=== PATIENT | female | born 1965 | race Hispanic/Latino ===

== ENCOUNTER 2024-04-23 01:38 | Inpatient (IN) | payer OTHER ==
[~2024-04-23] VITALS: Ht 157.5 cm; Wt 66.2 kg
[2024-04-23] MEDS: SODIUM CHLORIDE 0.9% 1000ML 1,000 ML IV STA (02:09)
[2024-04-23] MEDS: Morphine 4mg INJECTION 4 MG/ML INJ IV STA (02:09)
[2024-04-23] MEDS: ONDANSETRON HCL INJ 2MG/ML 2ML 2 MG/ML VIAL IV STA (02:09)
[2024-04-23 02:11] LABS: BASOPHILS % 0.2 % (0.0-1.0); EOSINOPHILS % 0.3 % (0.0-6.0); HEMATOCRIT 40.4 % (34.2-44.1); HEMOGLOBIN 13.1 g/dL (12.0-16.0); LYMPHOCYTES # (AUTO) 1.5 (1.0-3.2); LYMPHOCYTES % 12.5 % (18.0-39.1); MEAN CORPUSCULAR HEMOGLOBIN 30.5 pg (28-32); MEAN CORPUSCULAR HGB CONC 32.4 g/dL (31-35); MONOCYTES # (AUTO) 0.8 (0.2-0.8); MONOCYTES % 6.8 % (4.4-11.3); NEUTROPHILS # (AUTO) 9.2 (2.1-6.9); NEUTROPHILS % 79.3 % (38.7-80.0); PLATELET COUNT 276 x10e3/uL (140-360); WHITE BLOOD COUNT 11.61 x10e3/uL (4.8-10.8)
[2024-04-23 02:35] LABS: COLOR,URINE YELLOW (YELLOW)
[2024-04-23 02:36] LABS: BILIRUBIN,URINE MODERATE (NEGATIVE); CLARITY,URINE SL CLOUDY (CLEAR); GLUCOSE, URINE NEGATIVE (NEGATIVE); KETONES,URINE 2+ (NEGATIVE); LEUKOCYTE ESTERASE ,URINE TRACE (NEGATIVE); NITRITE,URINE NEGATIVE (NEGATIVE); PH,URINE 6 (5 - 7); PROTEIN,URINE DIPSTICK 1+ (NEGATIVE)
[2024-04-23 02:37] LABS: ALBUMIN 3.4 g/dL (3.5-5.0); ALBUMIN/GLOBULIN RATIO 0.8 (0.8-2.0); ANION GAP 16.8 mmol/L (8-16); BILIRUBIN,TOTAL 1.6 mg/dL (0.2-1.2); CALCIUM 9.4 mg/dL (8.4-10.2); CREATININE, SERUM 0.85 mg/dL (0.57-1.11); POTASSIUM 3.8 mmol/L (3.5-5.1); TOTAL PROTEIN 7.6 g/dL (6.5-8.1)
[2024-04-23] MEDS ORDERED: IOPAMIDOL 370 MG/ML 100 ML INFUS..BTL INJ ONE (02:49)
[2024-04-23 03:09] LABS: BACTERIA,URINE MANY /HPF
[2024-04-23 03:10] LABS: EPITHELIAL CELLS,URINE MODERATE /LPF; TRANSITIONAL EPI CELLS,URINE FEW
[2024-04-23] MEDS ORDERED: SODIUM CHLORIDE 0.9% 1000ML 1,000 ML ONE (03:21)
[2024-04-23] MEDS: SODIUM CHLORIDE 0.9% 1000ML 1,000 ML IV SCH (03:23)
[2024-04-23 10:42] VITALS: PULSE 75; RESP 20; O2SAT 96
[2024-04-23] MEDS: ONDANSETRON HCL INJ 2MG/ML 2ML 2 MG/ML VIAL IV PRN (11:42)
[2024-04-23] MEDS: Morphine 4mg INJECTION 4 MG/ML INJ IV PRN (11:43)
[2024-04-23 15:33] VITALS: PULSE 70; RESP 18; TEMP 98.6
[2024-04-23 16:30] VITALS: BP 129/75; PULSE 70; RESP 18; TEMP 98.6; O2SAT 94
[2024-04-23 17:08] VITALS: BP 123/70; PULSE 73; RESP 18; TEMP 98.2; O2SAT 94
[2024-04-23 20:00] VITALS: BP 119/68; PULSE 73; RESP 17; TEMP 99.1; O2SAT 93
[2024-04-23 21:00] VITALS: BP 119/68; PULSE 73; RESP 17; TEMP 99.1; O2SAT 93
[2024-04-24] VITALS (7 sets, daily range): BP systolic 133–163; BP diastolic 69–77; PULSE 60–75; RESP 17–18; TEMP 97.6–98.9; O2SAT 94–97
[2024-04-24 05:31] LABS: BASOPHILS % 0.2 % (0.0-1.0); EOSINOPHILS # (AUTO) 0.1 (0.0-0.4); EOSINOPHILS % 1.1 % (0.0-6.0); HEMATOCRIT 33.7 % (34.2-44.1); HEMOGLOBIN 10.6 g/dL (12.0-16.0); LYMPHOCYTES # (AUTO) 1.2 (1.0-3.2); LYMPHOCYTES % 13.7 % (18.0-39.1); MEAN CORPUSCULAR HEMOGLOBIN 30.1 pg (28-32); MEAN CORPUSCULAR HGB CONC 31.5 g/dL (31-35); MEAN CORPUSCULAR VOLUME 95.7 fL (81-99); MONOCYTES # (AUTO) 0.6 (0.2-0.8); MONOCYTES % 7.2 % (4.4-11.3); NEUTROPHILS # (AUTO) 6.4 (2.1-6.9); NEUTROPHILS % 76.7 % (38.7-80.0); PLATELET COUNT 247 x10e3/uL (140-360); RED BLOOD COUNT 3.52 x10e6/uL (3.6-5.1); WHITE BLOOD COUNT 8.38 x10e3/uL (4.8-10.8)
[2024-04-24 06:05] LABS: ALBUMIN 2.5 g/dL (3.5-5.0); ALBUMIN/GLOBULIN RATIO 0.7 (0.8-2.0); ANION GAP 14.4 mmol/L (8-16); BILIRUBIN,TOTAL 1.2 mg/dL (0.2-1.2); CALCIUM 8.5 mg/dL (8.4-10.2); CREATININE, SERUM 0.74 mg/dL (0.57-1.11); TOTAL PROTEIN 6.1 g/dL (6.5-8.1)
[2024-04-24 06:06] LABS: CHOL/HDL RATIO 5.8 (3.0-3.6); MAGNESIUM 2.1 MG/DL (1.3-2.1); PHOSPHORUS 3.2 MG/DL (2.3-4.7)
[2024-04-24 06:26] LABS: POTASSIUM 3.4 mmol/L (3.5-5.1)
[2024-04-24] MEDS: DEXTROSE 50% SYRINGE 50 ML IV PRN (06:43)
[2024-04-24] MEDS: DEXTROSE 5%/0.9% SOD CHL 1,000 ML IV SCH (15:40)
[2024-04-24 17:52] LABS: FREE T4 (FREE THYROXINE) 0.95 ng/dL (0.8-1.8); THYROID STIMULATING HORMONE 1.078 uIU/mL (0.350-4.940)
[2024-04-25] VITALS (9 sets, daily range): BP systolic 143–179; BP diastolic 70–78; PULSE 56–70; RESP 14–18; TEMP 97.7–99.2; O2SAT 93–99
[2024-04-25] MEDS ORDERED: FENTANYL CITRATE/PF 100MCG/2 ML INJ ONE (11:35)
[2024-04-25] MEDS: HYDRALAZINE HCL 20 MG/ML VIAL IV PRN (11:44)
[2024-04-25] MEDS ORDERED: BUPIVACAINE HCL 0.5% INJ 30 ML VIAL INJ ONE (12:56)
[2024-04-25] MEDS ORDERED: ACETAMINOPHEN 1000 MG/100 ML 100 ML IV ONE (12:59)
[2024-04-25] MEDS ORDERED: METOCLOPRAMIDE HCL 10 MG/2ML VIAL ONE (12:59)
[2024-04-25] MEDS ORDERED: FAMOTIDINE 20 MG/2 ML VIAL IV ONE (12:59)
[2024-04-25] MEDS ORDERED: HYDROMORPHONE 1MG/1ML INJ IV PRN (14:30)
[2024-04-25] MEDS ORDERED: ONDANSETRON HCL INJ 2MG/ML 2ML 2 MG/ML VIAL IV PRN (14:30)
[2024-04-25 16:39] LABS: BASOPHILS % 0.4 % (0.0-1.0); EOSINOPHILS % 0.2 % (0.0-6.0); HEMATOCRIT 36.3 % (34.2-44.1); HEMOGLOBIN 11.8 g/dL (12.0-16.0); LYMPHOCYTES # (AUTO) 0.6 (1.0-3.2); LYMPHOCYTES % 7.9 % (18.0-39.1); MEAN CORPUSCULAR HEMOGLOBIN 30.5 pg (28-32); MEAN CORPUSCULAR HGB CONC 32.5 g/dL (31-35); MEAN CORPUSCULAR VOLUME 93.8 fL (81-99); MONOCYTES # (AUTO) 0.3 (0.2-0.8); MONOCYTES % 3.7 % (4.4-11.3); NEUTROPHILS # (AUTO) 6.8 (2.1-6.9); NEUTROPHILS % 83.7 % (38.7-80.0); PLATELET COUNT 297 x10e3/uL (140-360); RED BLOOD COUNT 3.87 x10e6/uL (3.6-5.1); RED CELL DISTRIBUTION WIDTH 11.9 % (11.7-14.4); WHITE BLOOD COUNT 8.09 x10e3/uL (4.8-10.8)
[2024-04-25 16:56] LABS: CALCIUM 8.9 mg/dL (8.4-10.2); CREATININE, SERUM 0.67 mg/dL (0.57-1.11)
[2024-04-25] MEDS ORDERED: ROCURONIUM BROMIDE 10 MG/ML 5ML VIAL IV ONE (17:00)
[2024-04-25] MEDS ORDERED: SEVOFLURANE INHAL SOLN 250 ML PEN BTL ONE (17:00)
[2024-04-25] MEDS ORDERED: DEXAMETHASONE SOD PHOS INJ 4 MG/ML SDV ONE (17:00)
[2024-04-25] MEDS ORDERED: ONDANSETRON HCL INJ 2MG/ML 2ML 2 MG/ML VIAL ONE (17:00)
[2024-04-25] MEDS ORDERED: LIDOCAINE HCL 2% LOCAL INJ 5 ML SDV VIAL INJ ONE (17:00)
[2024-04-25] MEDS ORDERED: PROPOFOL IV EMULSION 10 MG/ML 20 ML VIAL ONE (17:00)
[2024-04-25] MEDS ORDERED: KETOROLAC TROMETHAMINE 30 MG/ML VIAL ONE (17:00)
[2024-04-25] MEDS: KETOROLAC TROMETHAMINE 30 MG/ML VIAL IV PRN (22:25)
[2024-04-26] VITALS: BP_SYST 146; BP_SYST 150; BP_DIAS 76; BP_DIAS 81; PULSE 58; PULSE 61; RESP 17; RESP 18; TEMP 97.9; TEMP 98.6; O2SAT 100; O2SAT 99
[2024-04-26 04:00] VITALS: BP 190/94; PULSE 67; RESP 21; TEMP 98.7; O2SAT 97
[2024-04-26] MEDS: HYDROCODONE/APAP 7.5MG-325MG 1 EA TAB PO PRN (04:20)
[2024-04-26 06:10] LABS: BASOPHILS % 0.4 % (0.0-1.0); EOSINOPHILS # (AUTO) 0.1 (0.0-0.4); EOSINOPHILS % 0.7 % (0.0-6.0); HEMATOCRIT 34.6 % (34.2-44.1); LYMPHOCYTES # (AUTO) 1.1 (1.0-3.2); MEAN CORPUSCULAR HGB CONC 31.8 g/dL (31-35); MEAN CORPUSCULAR VOLUME 94.3 fL (81-99); MONOCYTES # (AUTO) 0.5 (0.2-0.8); MONOCYTES % 6.2 % (4.4-11.3); NEUTROPHILS # (AUTO) 6.3 (2.1-6.9); NEUTROPHILS % 78.3 % (38.7-80.0); PLATELET COUNT 317 x10e3/uL (140-360); RED BLOOD COUNT 3.67 x10e6/uL (3.6-5.1); RED CELL DISTRIBUTION WIDTH 11.7 % (11.7-14.4); WHITE BLOOD COUNT 8.05 x10e3/uL (4.8-10.8)
[2024-04-26 06:27] LABS: ALANINE AMINOTRANSFERASE 42 IU/L (0-55); ALBUMIN 2.5 g/dL (3.5-5.0); ALBUMIN/GLOBULIN RATIO 0.7 (0.8-2.0); ALKALINE PHOSPHATASE 220 IU/L (40-150); ANION GAP 10.7 mmol/L (8-16); BILIRUBIN,TOTAL 0.6 mg/dL (0.2-1.2); BLOOD UREA NITROGEN < 5 mg/dL (7-26); CALCIUM 8.6 mg/dL (8.4-10.2); CARBON DIOXIDE 26 mmol/L (22-29); CHLORIDE 108 mmol/L (98-107); CREATININE, SERUM 0.74 mg/dL (0.57-1.11); EST GLOMERULAR FILTRATION RATE 93 ML/MIN (>=60); GLUCOSE 137 mg/dL (74-118); POTASSIUM 3.7 mmol/L (3.5-5.1); SODIUM 141 mmol/L (136-145)
[2024-04-26 06:28] LABS: BUN/CREATININE RATIO 7 (6-25)
[2024-04-26 08:32] VITALS: BP 129/72; PULSE 83; RESP 18; TEMP 97.6; O2SAT 94
[2024-04-26] MEDS ORDERED: CEPHALEXIN500 M1 PO (10:52)
[2024-04-26] MEDS ORDERED: AMLODIPINE BESYL5 MG PO (10:52)
[2024-04-26] MEDS ORDERED: ONDANSETRON ODT4 MG PO (10:52)
[2024-04-26] MEDS ORDERED: ACETAMINOPHEN-1 EAC4 PO (10:52)
[2024-04-26 11:47] VITALS: BP 149/78; PULSE 79; RESP 20; TEMP 98.1; O2SAT 97
== END 2024-04-26 12:47 | disposition home or self-care (01) | DRG 418 ==
LOC: ER 01:40 → ERHOLD 03:12 → MED/SURG3 16:27
PROVIDERS: ADMIT Internal Medicine; ATTEND Internal Medicine
PROC: 0DNU4ZZ Release Omentum, Percutaneous Endoscopic Approach (ICD-10-PCS; 2024-04-25)
PROC: 0FT44ZZ Resection of Gallbladder, Percutaneous Endoscopic Approach (ICD-10-PCS; principal; 2024-04-25 12:56)
DX: K80.00 Calculus of gallbladder with acute cholecystitis without obstruction (principal); N39.0 Urinary tract infection, site not specified; Z16.29 Resistance to other single specified antibiotic; B96.4 Proteus (mirabilis) (morganii) as the cause of diseases classified elsewhere; K66.0 Peritoneal adhesions (postprocedural) (postinfection); I10 Essential (primary) hypertension; R74.01 Elevation of levels of liver transaminase levels; E80.7 Disorder of bilirubin metabolism, unspecified; E16.2 Hypoglycemia, unspecified; K76.0 Fatty (change of) liver, not elsewhere classified; E66.9 Obesity, unspecified; Z68.26 Body mass index [BMI] 26.0-26.9, adult; Z71.3 Dietary counseling and surveillance; R63.4 Abnormal weight loss; Z71.81 Spiritual or religious counseling; Z11.52 Encounter for screening for COVID-19; Z86.010 Personal history of colon polyps
CPT/HCPCS: 0223U; 36415; 74177; 74181; 76705; 80048; 80053; 80061; 81001; 83036; 83690; 83735; 84100; 84439; 84443; 85025; 87086; 87186; 88304; 94799; 99284; C1766; J0360; J1100; J1885; J2001; J2270; J2405; J2543; J2765; J7030; J7042; Q9967